=== PATIENT | female | born 1970 | race Caucasian/White ===

== ENCOUNTER → 2020-11-22 | Outpatient (REF) | payer OTHER ==
[2020-11-22 15:09] LABS: C REACTIVE PROTEIN QUANTITATIV < 0.30 MG/DL (0.00-0.30); HEPATITIS B SURFACE ANTIBODY POSITIVE (POSITIVE)
[2020-11-22 15:18] LABS: HEPATITIS B SURFACE ANTIGEN NEGATIVE (NEGATIVE)
[2020-11-22 15:45] LABS: HEPATITIS C VIRUS ABY INDEX 0.1 INDEX (<0.8)
[2020-11-24 01:06] LABS: ANTI PARVO VIRUS LEVEL IGG 4.4 index (0.0-0.8); ANTI PARVO VIRUS LEVEL IgM 0.2 index (0.0-0.8); CYCLIC CITRULLINATED PEPTIDE > 250 units (0-19); HEPATITIS B CORE ANTIBODY IGG Negative (Negative)
== END ==
LOC: M SFHCRHEU 09:46
PROVIDERS: ATTEND Internal Medicine
DX: R76.8 Other specified abnormal immunological findings in serum (principal); M25.50 Pain in unspecified joint

== ENCOUNTER → 2020-12-11 | Outpatient (REF) | payer OTHER ==
[2020-12-11 17:12] LABS: ALBUMIN 3.8 GM/DL (3.2-5.2); ALT/SGPT 58 U/L (12-78); BILIRUBIN,DIRECT < 0.1 MG/DL (0.0-0.2); BILIRUBIN,TOTAL 0.2 MG/DL (0.2-1.0); TOTAL PROTEIN 8.3 GM/DL (6.4-8.2)
== END ==
LOC: M SFHCRHEU 11:44
PROVIDERS: ATTEND Internal Medicine
DX: R74.8 Abnormal levels of other serum enzymes (principal)